=== PATIENT | female | born 1975 | race Two or more races ===

== ENCOUNTER 2019-03-04 03:59 | Emergency (ER) | payer SELFPAY ==
[~2019-03-04] VITALS: Ht 154.9 cm; Wt 95.3 kg
--- NOTE | 2019-03-04 04:08 | PHYS DOC ---
Adult General Chief Complaint Chief Complaint: ABDOMINAL PAIN HPI HPI 43-year-old female presents with several week history of headaches with associated generalized malaise and epigastric abdominal pain. Reports chest disc omfort and palpitations. Reports pain worse with cough and deep inspiration. Denies calves tenderness or swelling. Reports tonight now with fever and nausea which started tonight. Denies known sick contacts. Denies trauma. (SARINA OLMEDO DO) Review of Systems Review of Systems Constitutional: Reports fever, generalized malaise, and chills HENT: Denies nasal congestion or sore throat Respiratory: Reports nonproductive cough; denies shortness of air Cardiovascular: Reports chest pain and palpitations GI: Reports abdominal pain and nausea : Denies dysuria or hematuria Musculoskeletal: Denies back pain or joint pain Integument: Denies rash or skin lesions Neurologic: Reports headache; denies focal weakness or sensory changes Complete systems were reviewed and found to be within normal limits, except as documented in this note. (SARINA OLMEDO DO) Current Medications Current Medications Current Medications Medications (Trade) Dose Ordered Sig/Thalia Start Time Stop Time Status Last Admin Dose Admin Acetaminophen (Tylenol) 500 mg 1X ONCE 03/04/19 04:30 03/04/19 04:31 DC 03/04/19 04:21 500 MG Ceftriaxone Sodium (Rocephin) 1 gm 1X ONCE 03/04/19 05:30 03/04/19 05:31 DC 03/04/19 05:39 1 GM Famotidine (Pepcid Vial) 20 mg STK-MED ONCE 03/04/19 04:19 03/04/19 04:20 DC Fentanyl Citrate (Fentanyl 2ml Vial) 50 mcg 1X ONCE 03/04/19 05:45 03/04/19 05:46 DC 03/04/19 05:39 50 MCG Info (CONTRAST GIVEN -- Rx MONITORING) 1 each PRN DAILY PRN 03/04/19 06:00 03/06/19 05:59 Iohexol (Omnipaque 350 Mg/ml) 100 ml 1X ONCE 03/04/19 05:45 03/04/19 05:46 DC 03/04/19 06:01 100 ML Ketorolac Tromethamine (Toradol 15mg Vial) 15 mg 1X ONCE 03/04/19 04:30 03/04/19 04:31 DC 03/04/19 04:23 15 MG Ketorolac Tromethamine (Toradol 30mg Vial) 30 mg STK-MED ONCE 03/04/19 04:19 03/04/19 04:20 DC Ondansetron HCl (Zofran) 4 mg STK-MED ONCE 03/04/19 04:18 03/04/19 04:19 DC Sodium Chloride 1,000 ml @ 1,000 mls/hr 1X ONCE 03/04/19 04:30 03/04/19 05:29 DC 03/04/19 04:21 1,000 MLS/HR (JENNY MCKEON MD) Allergies Allergies Allergies Coded Allergies Type Severity Reaction Last Updated Verified No Known Drug Allergies 03/04/19 No (JENNY MCKEON MD) Physical Exam Physical Exam Constitutional: Well developed, well nourished, uncomfortable HENT: Normocephalic, atraumatic, oropharynx moist Eyes: PERRL, EOMI, conjunctiva normal, no discharge Neck: Normal range of motion, no tenderness, supple, no meningeal signs Cardiovascular: Heart rate normal, regular rhythm Lungs & Thorax: Bilateral breath sounds clear to auscultation, no wheezing Abdomen: Soft, epigastric and right upper quadrant abdominal pain on palpation Skin: Warm, dry, no erythema, no rash Back: No tenderness, no CVA tenderness Extremities: No tenderness, ROM intact, no edema, no calves tenderness Neurologic: Alert and oriented X 3, normal motor function, normal sensory function, no focal deficits noted Psychologic: Affect anxious, judgement normal (OLMEDO,SARINA R DO) Current Patient Data Vital Signs Vital Signs Date Time Temp Pulse Resp B/P (MAP) Pulse Ox O2 Delivery O2 Flow Rate FiO2 03/04/19 07:30 67 20 121/64 (83) 95 Room Air 03/04/19 04:10 101.1 101.1 (JENNY MCKEON MD) Lab Values Laboratory Tests Test 03/04/19 04:05 03/04/19 04:10 03/04/19 04:15 Urine Collection Type Void Urine Color Yellow Urine Clarity Clear Urine pH 7.5 Urine Specific [place] 1.015 Urine Protein Negative mg/dL (NEG-TRACE) Urine Glucose (UA) Negative mg/dL (NEG) Urine Ketones (Stick) Negative mg/dL (NEG) Urine Blood Negative (NEG) Urine Nitrite Negative (NEG) Urine Bilirubin Negative (NEG) Urine Urobilinogen Dipstick 0.2 mg/dL (0.2 mg/dL) Urine Leukocyte Esterase Small (NEG) Urine RBC 6-10 /HPF (0-2) Urine WBC >40 /HPF (0-4) Urine Squamous Epithelial Cells Few /LPF Urine Bacteria Moderate /HPF (0-FEW) POC Urine HCG, Qualitative Hcg negative (Negative) White Blood Count 11.2 x10^3/uL (4.0-11.0) H Red Blood Count 4.68 x10^6/uL (3.50-5.40) Hemoglobin 13.7 g/dL (12.0-15.5) Hematocrit 40.1 % (36.0-47.0) Mean Corpuscular Volume 86 fL (79-100) Mean Corpuscular Hemoglobin 29 pg (25-35) Mean Corpuscular Hemoglobin Concent 34 g/dL (31-37) Red Cell Distribution Width 15.2 % (11.5-14.5) H Platelet Count 270 x10^3/uL (140-400) Neutrophils (%) (Auto) 83 % (31-73) H Lymphocytes (%) (Auto) 11 % (24-48) L Monocytes (%) (Auto) 5 % (0-9) Eosinophils (%) (Auto) 1 % (0-3) Basophils (%) (Auto) 0 % (0-3) Neutrophils # (Auto) 9.2 x10^3uL (1.8-7.7) H Lymphocytes # (Auto) 1.3 x10^3/uL (1.0-4.8) Monocytes # (Auto) 0.6 x10^3/uL (0.0-1.1) Eosinophils # (Auto) 0.1 x10^3/uL (0.0-0.7) Basophils # (Auto) 0.0 x10^3/uL (0.0-0.2) D-Dimer (Estefany) 0.61 ug/mlFEU (0.00-0.50) H Sodium Level 138 mmol/L (136-145) Potassium Level 3.8 mmol/L (3.5-5.1) Chloride Level 103 mmol/L (98-107) Carbon Dioxide Level 26 mmol/L (21-32) Anion Gap 9 (6-14) Blood Urea Nitrogen 12 mg/dL (7-20) Creatinine 0.8 mg/dL (0.6-1.0) Estimated GFR (Cockcroft-Gault) 78.7 BUN/Creatinine Ratio 15 (6-20) Glucose Level 119 mg/dL (70-99) H Lactic Acid Level 1.4 mmol/L (0.4-2.0) Calcium Level 9.1 mg/dL (8.5-10.1) Total Bilirubin 0.6 mg/dL (0.2-1.0) Aspartate Amino Transferase (AST) 19 U/L (15-37) Alanine Aminotransferase (ALT) 23 U/L (14-59) Alkaline Phosphatase 91 U/L (46-116) Creatine Kinase 40 U/L (26-192) Creatine Kinase MB (Mass) < 0.5 ng/mL (0.0-3.6) Creatine Kinase MB Relative Index % (0-4) Troponin I Quantitative < 0.017 ng/mL (0.000-0.055) Total Protein 7.5 g/dL (6.4-8.2) Albumin 3.5 g/dL (3.4-5.0) Albumin/Globulin Ratio 0.9 (1.0-1.7) L Lipase 126 U/L (73-393) Laboratory Tests 03/04/19 04:15 Laboratory Tests 03/04/19 04:15 (JENNY MCKEON MD) Lab Values Laboratory Tests Test 03/04/19 04:05 03/04/19 04:10 03/04/19 04:15 Urine Collection Type Void Urine Color Yellow Urine Clarity Clear Urine pH 7.5 Urine Specific [place] 1.015 Urine Protein Negative mg/dL (NEG-TRACE) Urine Glucose (UA) Negative mg/dL (NEG) Urine Ketones (Stick) Negative mg/dL (NEG) Urine Blood Negative (NEG) Urine Nitrite Negative (NEG) Urine Bilirubin Negative (NEG) Urine Urobilinogen Dipstick 0.2 mg/dL (0.2 mg/dL) Urine Leukocyte Esterase Small (NEG) Urine RBC 6-10 /HPF (0-2) Urine WBC >40 /HPF (0-4) Urine Squamous Epithelial Cells Few /LPF Urine Bacteria Moderate /HPF (0-FEW) POC Urine HCG, Qualitative Hcg negative (Negative) White Blood Count 11.2 x10^3/uL (4.0-11.0) H Red Blood Count 4.68 x10^6/uL (3.50-5.40) Hemoglobin 13.7 g/dL (12.0-15.5) Hematocrit 40.1 % (36.0-47.0) Mean Corpuscular Volume 86 fL (79-100) Mean Corpuscular Hemoglobin 29 pg (25-35) Mean Corpuscular Hemoglobin Concent 34 g/dL (31-37) Red Cell Distribution Width 15.2 % (11.5-14.5) H Platelet Count 270 x10^3/uL (140-400) Neutrophils (%) (Auto) 83 % (31-73) H Lymphocytes (%) (Auto) 11 % (24-48) L Monocytes (%) (Auto) 5 % (0-9) Eosinophils (%) (Auto) 1 % (0-3) Basophils (%) (Auto) 0 % (0-3) Neutrophils # (Auto) 9.2 x10^3uL (1.8-7.7) H Lymphocytes # (Auto) 1.3 x10^3/uL (1.0-4.8) Monocytes # (Auto) 0.6 x10^3/uL (0.0-1.1) Eosinophils # (Auto) 0.1 x10^3/uL (0.0-0.7) Basophils # (Auto) 0.0 x10^3/uL (0.0-0.2) D-Dimer (Estefany) 0.61 ug/mlFEU (0.00-0.50) H Sodium Level 138 mmol/L (136-145) Potassium Level 3.8 mmol/L (3.5-5.1) Chloride Level 103 mmol/L (98-107) Carbon Dioxide Level 26 mmol/L (21-32) Anion Gap 9 (6-14) Blood Urea Nitrogen 12 mg/dL (7-20) Creatinine 0.8 mg/dL (0.6-1.0) Estimated GFR (Cockcroft-Gault) 78.7 BUN/Creatinine Ratio 15 (6-20) Glucose Level 119 mg/dL (70-99) H Lactic Acid Level 1.4 mmol/L (0.4-2.0) Calcium Level 9.1 mg/dL (8.5-10.1) Total Bilirubin 0.6 mg/dL (0.2-1.0) Aspartate Amino Transferase (AST) 19 U/L (15-37) Alanine Aminotransferase (ALT) 23 U/L (14-59) Alkaline Phosphatase 91 U/L (46-116) Troponin I Quantitative < 0.017 ng/mL (0.000-0.055) Total Protein 7.5 g/dL (6.4-8.2) Albumin 3.5 g/dL (3.4-5.0) Albumin/Globulin Ratio 0.9 (1.0-1.7) L Lipase 126 U/L (73-393) Laboratory Tests 03/04/19 04:15 Laboratory Tests 03/04/19 04:15 (SARINA OLMEDO DO) EKG EKG @0426 NSR at 77bpm, NO ST elevation (SARINA OLMEDO DO) Radiology/Procedures Radiology/Procedures [] (SARINA OLMEDO DO) Radiology/Procedures [facility] [address] [place] [address] IMAGING REPORT Signed PATIENT: BALBIR BUCK ACCOUNT: [id number] : 1975 LOCATION: ER AGE: 43 SEX: F EXAM STATUS: REG ER ORD. PHYSICIAN: SARINA OLMEDO DO REASON: pain, elevated d-dimer, OMNI 350, 100ml PROCEDURE: CT ANGIO CHEST ABD PELVIS CT angiogram chest, abdomen and pelvis: Reason for examination: Elevated d-dimer with pain. Helical images were obtained through the chest, abdomen and pelvis with intravenous administration 100 cc of opaque 350 using angiographic protocol. 3-D reconstruction was performed in sagittal and coronal planes. Volume rendered images were obtained. Exposure: One or more of the following individualized dose reduction techniques were utilized for this examination: 1. Automated exposure control 2. Adjustment of the mA and/or kV according to patient size 3. Use of iterative reconstruction technique. No abnormality seen at the thyroid gland. The trachea and mainstem bronchi show no intraluminal lesions. No abnormality seen at the esophagus. The thoracic aorta shows no aneurysmal dilatation or dissection. The heart size is normal with no pericardial effusion. There is no evidence of pulmonary embolus. The lung mon are clear. No gross pleural effusions or pneumothorax are seen. No acute bony abnormalities are seen in the chest. There is fatty infiltration of liver without a focal lesion. No abnormality seen at the spleen, adrenal glands or pancreas. Gallbladder surgically absent. The abdominal aorta shows no aneurysmal dilatation or dissection. No abnormality seen at the inferior vena cava. The kidneys show a small hypodense lesion at the upper pole the right kidney consistent with a probable cyst measuring 12 mm in size. No renal calculi, hydronephrosis or obstructive uropathy is seen. The colon shows no diverticulosis, diverticulitis or colitis. The small intestinal tract shows no abnormal dilatation or wall thickening and no evidence of small bowel obstruction. There is no abnormality seen at the stomach. No abnormality seen at the bladder or vaginal cuff. No free fluid is seen in the abdomen or pelvis. No acute bony abnormalities are present but there are subchondral cysts present in the acetabulum bilaterally. IMPRESSION: No evidence of pulmonary embolus. No infiltrates or pleural effusions. Fatty liver without a focal lesion. No renal calculi or obstructive uropathy. No thoracic or abdominal aortic aneurysm or dissection. Subchondral cyst formation at the acetabula bilaterally. Electronically signed by: Moise Ibrahim MD (03/04/2019 7:15 AM) [facility] DICTATED and SIGNED BY: MOISE IBRAHIM MD DATE: 03/04/19 0715 (JENNY MCKEON MD) Course & Med Decision Making Course & Med Decision Making Pertinent Labs and Imaging studies reviewed. (See chart for details) Patient presents with several week history of intermittent headache. This morning now with fever and nausea. Pain noted to epigastrium and right upper quadrant. Pain/nausea addressed. Fever also address. IV fluid hydration provided. Labs obtained and posted to chart. WBC slightly elevated. Lactic acid WNL. LFTs/lipase also WNL. UA with signs of infection. Empiric antibiotics given. EKG stable. Troponin WNL. D-dimer elevated. CT chest/abdomen/pelvis ordered and pending at this time. Sign out given to Dr. Mckeon for further evaluation and final disposition. Discussed current findings and plan with patient and family, who acknowledge understanding and agreement. (SARINA OLMEDO DO) Course & Med Decision Making Patient care transferred to in for following up the CT angio of chest and abdomen and pelvis and discharging the patient if the test come back negative. Patient had unremarkable CT and felt better. Plan discharge patient home with prescription of Bactrim, ibuprofen and [place] and instruction to follow up with her primary care physician. (JENNY MCKEON MD) Dragon Disclaimer Dragon Disclaimer This electronic medical record was generated, in whole or in part, using a voice recognition dictation system. (SARINA OLMEDO DO) Departure Departure Impression: Primary Impression: Abdominal pain Additional Impressions: Headache Fever UTI (urinary tract infection) Disposition: HOME, SELF-CARE (at 725) Condition: IMPROVED Patient Instructions: Abdominal Pain (Nonspecific), Fever, Adult, General Head ache Without Cause, Urinary Tract Infection Scripts Hydrocodone/Apap 5-325 (NORCO 5-325 TABLET) 1 Each Tablet 1 TAB PO PRN Q6HRS PRN for PAIN, #12 TAB 0 Refills Prov: JENNY MCKEON MD 03/04/19 Ibuprofen (IBUPROFEN) 800 Mg Tablet 800 MG PO PRN Q8HRS PRN for INFLAMMATION, #20 TAB Prov: JENNY MCKEON MD 03/04/19 Sulfamethoxazole/Trimethoprim (BACTRIM DS TABLET) 1 Each Tablet 1 TAB PO BID for infection, #14 TAB Prov: JENNY MCKEON MD 03/04/19 Problem Qualifiers Primary Impression: Abdominal pain Abdominal location: epigastric Qualified Codes: R10.13 - Epigastric pain Additional Impressions: Headache Headache type: unspecified Headache chronicity pattern: acute headache Intractability: not intractable Qualified Codes: R51 - Headache Fever Fever type: unspecified Qualified Codes: R50.9 - Fever, unspecified UTI (urinary tract infection) Urinary tract infection type: acute cystitis Hematuria presence: without h ematuria Qualified Codes: N30.00 - Acute cystitis without hematuria SARINA OLMEDO DO Mar 04, 2019 04:08 JENNY MCKEON MD Mar 04, 2019 07:28
[2019-03-04 04:16] LABS: BILIRUBIN,URINE NEGATIVE (NEG); CLARITY,URINE CLEAR; COLOR,URINE YELLOW; NITRITE,URINE NEGATIVE (NEG); PH,URINE 7.5; PROTEIN,URINE NEGATIVE (NEG-TRACE); UROBILINOGEN,URINE 0.2 mg/dL (0.2 mg/dL)
[2019-03-04] MEDS ORDERED: ONDANSETRON PF 4 MG/2 ML VIAL. ONE (04:18)
[2019-03-04] MEDS ORDERED: FAMOTIDINE 20 MG/2 ML VIAL ONE (04:19)
[2019-03-04] MEDS ORDERED: KETOROLAC 30 MG/ML VIAL. ONE ×2 (04:19)
[2019-03-04 04:30] LABS: BASO % 0 % (0-3); EOS # 0.1 x10^3/uL (0.0-0.7); EOS % 1 % (0-3); HEMATOCRIT 40.1 % (36.0-47.0); HEMOGLOBIN 13.7 g/dL (12.0-15.5); LYMPH # 1.3 x10^3/uL (1.0-4.8); LYMPH % 11 % (24-48); MEAN CORPUSCULAR HEMOGLOBIN 29 pg (25-35); MEAN CORPUSCULAR HGB CONC 34 g/dL (31-37); MEAN CORPUSCULAR VOLUME 86 fL (79-100); MONO # 0.6 x10^3/uL (0.0-1.1); MONO % 5 % (0-9); NEUT # 9.2 x10^3uL (1.8-7.7); NEUT % 83 % (31-73); PLATELET COUNT 270 x10^3/uL (140-400); RED BLOOD COUNT 4.68 x10^6/uL (3.50-5.40); RED CELL DISTRIBUTION WIDTH 15.2 % (11.5-14.5); WHITE BLOOD COUNT 11.2 x10^3/uL (4.0-11.0)
[2019-03-04] MEDS ORDERED: IV NORMAL SALINE 1000ML BAG 1,000 ML IV ONE (04:30)
[2019-03-04] MEDS ORDERED: ONDANSETRON PF 4 MG/2 ML VIAL. IV ONE (04:30)
[2019-03-04] MEDS ORDERED: KETOROLAC 15 MG/ML VIAL. IV ONE (04:30)
[2019-03-04] MEDS ORDERED: FAMOTIDINE 20 MG/2 ML VIAL IVP ONE (04:30)
[2019-03-04] MEDS ORDERED: ACETAMINOPHEN 500 MG TABLET PO ONE (04:30)
[2019-03-04 04:52] LABS: CALCIUM 9.1 mg/dL (8.5-10.1); CREATININE 0.8 mg/dL (0.6-1.0); GFR 78.7; POTASSIUM 3.8 mmol/L (3.5-5.1)
[2019-03-04 05:00] LABS: ALBUMIN 3.5 g/dL (3.4-5.0); ALBUMIN/GLOBULIN RATIO 0.9 (1.0-1.7); TOTAL BILIRUBIN 0.6 mg/dL (0.2-1.0); TOTAL PROTEIN 7.5 g/dL (6.4-8.2)
[2019-03-04 05:00] LABS: BACTERIA,URINE MODERATE /HPF (0-FEW); SQUAMOUS EPITHELIAL CELL,UR FEW /LPF; WBC,URINE >40 /HPF (0-4)
[2019-03-04 05:19] LABS: CREATINE KINASE 40 U/L (26-192)
[2019-03-04] MEDS ORDERED: cefTRIAXone IV Push 1 GM VIAL. IVP ONE (05:30)
[2019-03-04] MEDS ORDERED: IOHEXOL 350 MG/ML 100 ML VIAL. IV ONE (05:45)
[2019-03-04] MEDS ORDERED: fentaNYL PF VIAL 100 MCG/2 ML VIAL IV ONE (05:45)
[2019-03-04] MEDS ORDERED: CONTRAST GIVEN. MC PRN (06:00)
--- NOTE | 2019-03-04 07:18 | RAD ---
CT angiogram chest, abdomen and pelvis: Reason for examination: Elevated d-dimer with pain. Helical images were obtained through the chest, abdomen and pelvis with intravenous administration 100 cc of opaque 350 using angiographic protocol. 3-D reconstruction was performed in sagittal and coronal planes. Volume rendered images were obtained. Exposure: One or more of the following individualized dose reduction techniques were utilized for this examination: 1. Automated exposure control 2. Adjustment of the mA and/or kV according to patient size 3. Use of iterative reconstruction technique. No abnormality seen at the thyroid gland. The trachea and mainstem bronchi show no intraluminal lesions. No abnormality seen at the esophagus. The thoracic aorta shows no aneurysmal dilatation or dissection. The heart size is normal with no pericardial effusion. There is no evidence of pulmonary embolus. The lung mon are clear. No gross pleural effusions or pneumothorax are seen. No acute bony abnormalities are seen in the chest. There is fatty infiltration of liver without a focal lesion. No abnormality seen at the spleen, adrenal glands or pancreas. Gallbladder surgically absent. The abdominal aorta shows no aneurysmal dilatation or dissection. No abnormality seen at the inferior vena cava. The kidneys show a small hypodense lesion at the upper pole the right kidney consistent with a probable cyst measuring 12 mm in size. No renal calculi, hydronephrosis or obstructive uropathy is seen. The colon shows no diverticulosis, diverticulitis or colitis. The small intestinal tract shows no abnormal dilatation or wall thickening and no evidence of small bowel obstruction. There is no abnormality seen at the stomach. No abnormality seen at the bladder or vaginal cuff. No free fluid is seen in the abdomen or pelvis. No acute bony abnormalities are present but there are subchondral cysts present in the acetabulum bilaterally. IMPRESSION: No evidence of pulmonary embolus. No infiltrates or pleural effusions. Fatty liver without a focal lesion. No renal calculi or obstructive uropathy. No thoracic or abdominal aortic aneurysm or dissection. Subchondral cyst formation at the acetabula bilaterally. Electronically signed by: Subha Perez MD (03/04/2019 7:15 AM) [facility]
[2019-03-04] MEDS ORDERED: HYDR-3164 PO (07:27)
[2019-03-04] MEDS ORDERED: SULF1TAB24 PO (07:27)
[2019-03-04] MEDS ORDERED: IBUP-1060 PO (07:27)
[2019-03-04 07:30] VITALS: BP 121/64
--- NOTE | 2019-03-04 09:19 | EKG ---
[facility] [address] [place] [address] Test Date: 2019-03-04 Test Time: 04:26:43 Pat Name: BALBIR BUCK Department: Room: Gender: F [employer]: : 1975 Requested By: SARINA OLMEDO Order Number: [id number] Reading MD: Measurements Intervals [place] Rate: 77 P: 80 SC: 148 QRS: 56 QRSD: 72 T: 3 QT: 342 QTc: 388 Interpretive Statements SINUS RHYTHM LEFT ATRIAL ABNORMALITY ABNORMAL ECG No previous ECG available for comparison
== END 2019-03-04 07:41 | disposition home or self-care (01) ==
LOC: ER 03:59
DX: R10.13 Epigastric pain (principal); R10.11 Right upper quadrant pain; R51 Headache; N30.00 Acute cystitis without hematuria; R53.81 Other malaise; R07.89 Other chest pain; R00.2 Palpitations; R05 Cough; R11.0 Nausea; R50.9 Fever, unspecified
CPT/HCPCS: 36415; 71275; 74174; 80053; 81001; 81025; 82553; 83605; 83690; 84484; 85025; 85379; 87086; 93005; 96374; 96375; 99285; J0696; J1885; J2405; J3010; J3490; J7030; Q9967

== ENCOUNTER 2019-04-15 16:36 | Emergency (ER) | payer SELFPAY ==
[~2019-04-15] VITALS: Ht 154.9 cm; Wt 117.9 kg
[~2019-04-15 16:36] MED LIST: HYDR-3164 PO; IBUP-1060 PO; SULF1TAB24 PO
[2019-04-15 16:44] VITALS: BP 130/58
[2019-04-15] MEDS ORDERED: HYDROcodone/APAP 5/325MG 1 TAB TABLET PO ONE (17:15)
[2019-04-15] MEDS ORDERED: IBUPROFEN 200 MG TABLET. PO ONE (17:15)
--- NOTE | 2019-04-15 17:18 | RAD ---
FOREARM LEFT History: Laceration with possible wood foreign body.. Findings: No evidence of acute fracture. No evidence of bone destruction. No evidence of acute fracture. No aggressive bone destruction. No radiopaque foreign body is seen. IMPRESSION: No definite radiopaque soft tissue foreign body is seen, although the location of laceration is not indicated. Note that a wood foreign body could be difficult to detect radiographically. Ultrasound could provide further evaluation if indicated. Electronically signed by: Maurice Monson MD (04/15/2019 5:15 PM) [facility]
--- NOTE | 2019-04-15 17:24 | PHYS DOC ---
Past Medical History Past Medical History: No Pertinent History Past Surgical History: Hysterectomy Alcohol Use: None Drug Use: None Adult General Chief Complaint Chief Complaint: LACERATION/AVULSION HPI HPI 31-year-old female presents to ER with complaints of left forearm injury which occurred [employer]ENT to ER. Patient states she was going to get on a horse when she fell onto a board with a screw in it. Patient states the screw punctured her left posterior forearm. She denies other injury. She reports she is up-to-date on tetanus within the past 5 years. She reports history of hysterectomy. She reports she is rt hand dominant. Review of Systems Review of Systems Musculoskeletal: Reports lt forearm pain w/puncture wound Integument: Reports puncture wound posterior lt forearm Neurologic: Denies focal weakness or sensory changes [] All other systems were reviewed and found to be within normal limits, except as documented in this note. Current Medications Current Medications Current Medications Medications (Trade) Dose Ordered Sig/Thalia Start Time Stop Time Status Last Admin Dose Admin Acetaminophen/ Hydrocodone Bitart (Lortab 5/325) 1 tab 1X ONCE 04/15/19 17:15 04/15/19 17:17 DC Diphtheria/ Tetanus/Acell Pertussis (Boostrix) 0.5 ml ONCE ONCE 04/15/19 18:00 04/15/19 18:01 Ibuprofen (Motrin) 600 mg 1X ONCE 04/15/19 17:15 04/15/19 17:17 DC Allergies Allergies Allergies Coded Allergies Type Severity Reaction Last Updated Verified No Known Drug Allergies 03/04/19 No Physical Exam Physical Exam Constitutional: Well developed, well nourished, no acute distress, non-toxic appearance. [] HENT: Normocephalic, atraumatic, oropharynx moist, nose normal. [] Eyes: Pupils equal, conjunctiva normal, no discharge. [] Neck: Normal range of motion, no tenderness, supple, no stridor. [] Cardiovascular: Heart rate regular Lungs & Thorax: Resp. equal/nonlabored Skin: Warm, dry Back: No tenderness, full ROM Extremities: No cyanosis, no clubbing, ROM intact, no edema. 1/2" puncture wound lt mid posterior forearm- no active bleeding/ecchymosis. Pt able to move lt fingers lt hand reports she is having numbness/tingling intermittently. Neurologic: Alert and oriented X 3, normal motor function, normal sensory function, no focal deficits noted. [] Psychologic: Affect normal, judgement normal, mood normal. [] Current Patient Data Vital Signs Vital Signs Date Time Temp Pulse Resp B/P (MAP) Pulse Ox O2 Delivery O2 Flow Rate FiO2 04/15/19 16:44 98.1 67 20 130/58 (82) 96 Room Air 98.1 EKG EKG [] Radiology/Procedures Radiology/Procedures PROCEDURE: FOREARM LEFT FOREARM LEFT History: Laceration with possible wood foreign body.. Findings: No evidence of acute fracture. No evidence of bone destruction. No evidence of acute fracture. No aggressive bone destruction. No radiopaque foreign body is seen. IMPRESSION: No definite radiopaque soft tissue foreign body is seen, although the location of laceration is not indicated. Note that a wood foreign body could be difficult to detect radiographically. Ultrasound could provide further evaluation if indicated. Electronically signed by: Maurice Monson MD (04/15/2019 5:15 PM) [facility] DICTATED and SIGNED BY: MAURICE MONSON MD DATE: 04/15/19 8526 Course & Med Decision Making Course & Med Decision Making Pertinent Imaging studies reviewed. (See chart for details) 1730: Pt was evaluated in the ER for c/o lt forearm injury- no FB reported on image report. This was discussed with pt. No acute findings on xray. Patient was updated on her tetanus while in the ER. Patient was provided with ibuprofen and dose of pain medicine. While discussing x-ray results RN was at bedside irrigating the wound. No palpable foreign body in wound. Patient remained PMS intact in left upper extremity. Will provide sling for support of extremity with patient advised on need to perform range of motion. Will provide patient with pain medicine she was advised on ice pack use as well as Tylenol and/or ibuprofen. Patient had one Steri-Strip applied to wound as wound was less then 0.5 cm in size- along with dressing being applied with bactroban ointment. Patient advised on home wound care.Education provided on signs and symptoms to return to ER. Discharge instructions were discussed. Patient to follow-up with primary care physician if symptoms persist or with any concerns. Dragon Disclaimer Dragon Disclaimer This electronic medical record was generated, in whole or in part, using a voice recognition dictation system. Departure Departure Impression: Primary Impression: Injury of forearm, left Additional Impression: Puncture wound Disposition: HOME, SELF-CARE Condition: STABLE Referrals: NO PCP (PCP) Patient Instructions: Arm Sling Use, [id number], Contusion, Open Wound, Forearm, [id number] Additional Instructions: Ice pack to affected area every 3-4 hours for 20-30 minutes at a time- avoid direct ice contact with skin. Tylenol and/or ibuprofen as needed for pain as directed on container. Monitor your wound for signs of infection and with any concerns follow-up with your primary care physician for reevaluation and further care. Apply triple antibiotic ointment or bactroban ointment 2-3 times a day to site. Scripts Hydrocodone/Apap 5-325 (NORCO 5-325 TABLET) 1 Each Tablet 1 TAB PO PRN Q6HRS PRN for PAIN, #10 TAB 0 Refills No driving or drinking alcohol while taking this medication Prov: BELIA RUIZ APRN 04/15/19 Problem Qualifiers BELIA RUIZ APRN Apr 15, 2019 17:24
[2019-04-15] MEDS ORDERED: NEOMY/BACITR/POLYMYXIN OINT PACKET. TP ONE (17:43)
[2019-04-15] MEDS ORDERED: MUPIROCIN 2 % TOPICAL CREAM 30GM TUBE. TP ONE (17:45)
[2019-04-15] MEDS ORDERED: HYDR-3164 PO (17:47)
[2019-04-15] MEDS ORDERED: DIPHTH,PERTUSS(ACELL),TET TOX 0.5 ML DISP.SYRIN. VAX IM ONE (18:00)
== END 2019-04-15 18:01 | disposition home or self-care (01) ==
LOC: ER 16:36
DX: S51.832A Puncture wound without foreign body of left forearm, initial encounter (principal); Z90.710 Acquired absence of both cervix and uterus; V80.010A Animal-rider injured by fall from or being thrown from horse in noncollision accident, initial encounter; Y93.89 Activity, other specified; Y92.89 Other specified places as the place of occurrence of the external cause; Y99.8 Other external cause status
CPT/HCPCS: 73090; 90471; 90715; 99284